=== PATIENT | female | born 1975 | race Hispanic/Latino ===

== ENCOUNTER 2018-09-29 09:01 | Emergency (ER) | payer OTHER ==
[2018-09-29 09:14] VITALS: BMI 25.8
[2018-09-29] MEDS ORDERED: DiphenhydrAMINE 50 mg/ml Inj IVP STA (09:40)
--- NOTE | 2018-09-29 09:40 | ED PDOC ---
HPI: Allergic Reaction Time Seen by Provider: 09/29/18 09:28 Chief Complaint (Provider): Allergic Reaction (no respiratory symptoms) History Per: Patient History/Exam Limitations: no limitations Onset/Duration Of Symptoms: Days (two days) Current Symptoms Are (Timing): Still Present Possible Cause: Unknown Associated Symptoms: Skin Rash, Swelling, Redness. denies: Trouble Swallowing, Dizziness, Itching Home/EMS Treatment: Benadryl Severity: Mild Additional Complaint(s): Pt presents to the ED complaining of two days of an erythematous facial rash and mild facial swelling; she was seen by a retread supervisor within the last 24 hours who dx her with an allergic reaction and referred her to an double end tenoner setter for testing. Pt is in no respiratory distress, no palpitation, no pain, pruritis or other symptoms. Pt denies any recent new exposures, but did dine out in [facility] last night and consummed shellfish, which usually provides no reactions to her system. Past Medical History Reviewed: Historical Data, Nursing Documentation, Vital Signs Vital Signs: Last Vital Signs Temp 97.7 F 09/29/18 09:13 Pulse 68 09/29/18 09:13 Resp BP 136/87 09/29/18 09:13 Pulse Ox 98 09/29/18 09:13 - Family History Family History: States: Unknown Family Hx - Home Medications Home Medications: Ambulatory Orders Medication Instructions Recorded Prednisone 20 mg PO ASDIR #20 tablet 01/22/16 Prednisone [Deltasone] 20 mg PO DAILY #5 tablet 09/29/18 - Allergies Allergies/Adverse Reactions: Allergies Allergy/AdvReac Type Severity Reaction Status Date / Time No Known Allergies Allergy Verified 09/29/18 11:41 Review of Systems ROS Statement: Except As Marked, All Systems Reviewed And Found Negative Constitutional: Negative for: Fever, Chills, Sweats Eyes: Negative for: Pain, Vision Change Skin: Positive for: Rash, Other (mild edema) Physical Exam - Reviewed Nursing Documentation Reviewed: Yes Vital Signs Reviewed: Yes - Physical Exam Appears: Positive for: Well, Non-toxic, No Acute Distress. Negative for: Uncomfortable Head Exam: Positive for: ATRAUMATIC, NORMAL INSPECTION Skin: Positive for: Warm, Rash. Negative for: Normal Color (skin at face is mildly erythematous and edematous; there are no respiratory symptoms. ), Diaphoresis, Pallor Eye Exam: Positive for: Normal appearance. Negative for: Periorbital swelling, Periorbital tenderness ENT: Positive for: Normal ENT Inspection, Pharynx Is (clear and non- erythematous; ), Tonsillar Swelling (tonsils are enlarged, but patient indicates that this is a chronic physiological condition. ). Negative for: Nasal Congestion, Pharyngeal Erythema, Tonsillar Exudate Neck: Positive for: Normal, Painless ROM, Supple. Negative for: Decreased ROM Cardiovascular/Chest: Positive for: Regular Rate, Rhythm, Chest Non Tender. Negative for: Edema, Gallop, Murmur, Bradycardia, Tachycardia Respiratory: Positive for: Normal Breath Sounds. Negative for: Decreased Breath Sounds, Accessory Muscle Use, Crackles, Rales, Rhonchi, Stridor, Wheezing, Respiratory Distress Pulses-Carotid (L): 2+ Pulses-Carotid (R): 2+ Pulses-Radial (L): 2+ Pulses-Radial (R): 2+ - ECG O2 Sat by Pulse Oximetry: 98 - Critical Care Notes:: Pt treated with 1L fluids, 50mg diphenhidramine and 10mg decadron; 45 minutes post treatment a re-evaluation was performed, the erythemity persists, however, the edematous swelling has vanished and the patient is resting comfortably in her bed at conclusion of IV fluid hydration, the edema has disapated fully and the erythemity has vanished. The patient continues to rest comfortably and will follow up with her double end tenoner setter, as was a plan prior to presentation The pt will be rx 20mg prednisone Qday from Sunday through Disposition - Clinical Impression Clinical Impression: Acute allergic reaction - Patient ED Disposition Is Patient to be Admitted: No Doctor Will See Patient In The: Office Counseled Patient/Family Regarding: Studies Performed, Diagnosis, Need For Followup - Disposition Disposition: Routine/Home Disposition Time: 11:48 Condition: STABLE Prescriptions: Prednisone [Deltasone] 20 mg PO DAILY #5 tablet
[2018-09-29] MEDS ORDERED: Sodium Chloride 0.9% 1,000 ML IV SCH (09:45)
[2018-09-29] MEDS ORDERED: DiphenhydrAMINE 50 mg/ml Inj ONE (09:55)
[2018-09-29 12:11] VITALS: BP 121/78; PULSE 60; RESP 18; TEMP 99; O2SAT 99
== END 2018-09-29 12:16 | disposition home or self-care (01) ==
LOC: H.ER 09:01
DX: T78.40XA Allergy, unspecified, initial encounter (principal)
CPT/HCPCS: 81025; 96361; 96374; 96375; 99283; J1100; J1200; J7030